=== PATIENT | male | born 1990 | race Caucasian/White ===

== ENCOUNTER 2025-03-25 10:56 | Emergency (ER) | payer MEDICARE, SELFPAY ==
[2025-03-25 11:01] VITALS: BP 197/131
[2025-03-25 11:37] VITALS: BP 162/96
--- NOTE | 2025-03-25 11:50 | ED.GENMED ---
History of Present Illness
General
Chief Complaint: Ear Problem
Time Seen by Provider: 03/25/25 11:28
History of Present Illness
History of Present Illness:
35-year-old male presents to the emergency department for evaluation of persistent left ear pain with progressive hearing loss over the past several days. At the urgent care 3 days ago diagnosed with left otitis media and started on Augmentin.
States symptoms
He has now developed mild hearing loss. Denies fevers, chills, sweats, URI symptoms, nausea, or vomiting. Has had multiple episodes of otitis media in the past month
Review of Systems
Review of Systems
Allergies reviewed?: Yes
All Other Systems: ROS reviewed and negative except as documented in HPI and ROS
Phy Exam
Physical Exam
Physical Exam:
GEN: Well appearing, NAD, WDWN
HEENT: Oral mucosa moist, no scleral icterus. Left tympanic membrane with purulent exudates surrounding the TM, no evidence of perforation, questionable early formation, the most EAC is markedly erythematous with exudates. There is posterior
auricular adenopathy on the left with no mastoid tenderness anterior chain adenopathy. No trismus.
Cardiac: Regular rate
Lung: No respiratory distress, no tachypnea
MSK: No gross deformity or injuries
Skin: Good color, no pallor or jaundice, no rashes
Neuro: AO x3, moves all extremities freely
Psych: Calm, cooperative
Course
Vital Signs
Initial and Last Documented VS:
Initial Vital Signs
Temp Pulse Resp BP Pulse Ox
98.1 F 73 14 197/131 100
03/25/25 11:01 03/25/25 11:01 03/25/25 11:01 03/25/25 11:01 03/25/25 11:01
Last Documented Vital Signs
Temp Pulse Resp BP Pulse Ox
98.1 F 73 14 162/96 100
03/25/25 11:01 03/25/25 11:01 03/25/25 11:01 03/25/25 11:37 03/25/25 11:50
MDM/Problems Addressed
MDM/Problems Addressed:
Appearance suspicious for arthritis externa, will add topical and recommend outpatient ENT follow-up due to recurrence of infections over the past month
*Pulse Oximetry
SaO2: 100
Oxygen Mode of Delivery: Room air
Patient hypoxic: no
*Critical Care Note
Total Time (30-74mins, 75-104mins- exclusive of procedures): Not Applicable
ED Attending Note
-
Portions of this chart may have been created with voice recognition software.� Occasional wrong word or��sound alike� substitutions may have occurred due to the inherent limitations of voice recognition software.
Discharge Plan
Departure
Patient Disposition: Home (Routine Discharge)
Date of Disposition: 03/25/25
Time of Disposition: 11:50
Patient with high blood pressure during this ER visit?: No
Discharge Problem:
Acute bacterial otitis externa, Otitis media
Instructions: Outer Ear Infection (DC)
Prescriptions:
New
ciprofloxacin-dexamethasone 0.3-0.1 % drops,suspension
4 drp otic (ear) BID 7 Days Qty: 7.5 0RF
Referrals:
Jong Anthony MD [Active, Otology] - Call in 1-3 days for appt
NONE,* [Family Provider, Internal Medicine]
Activity Restrictions/Additional Instructions:
Continue antibiotics
Follow up with ENT as soon as possible for re-evaluation of your frequent ear infections
Interventions
Interventions:
*Risk Screen - Suicide Last Done: 03/25/25 11:01
*General Assessment Last Done: 03/25/25 11:01
*Neglect/Abuse Screening Last Done: 03/25/25 11:01
*ED- Fall Risk Assessment Last Done: 03/25/25 11:37
*ED COVID-19 Vaccine History Last Done: 03/25/25 11:01
*ED Influenza Vaccine History Last Done: 03/25/25 11:01
*Nursing Disposition Last Done: 03/25/25 12:05
Discharge Date and Time
Discharge Date/Time: 03/25/25 12:09
Print Language: [id number]
== END 2025-03-25 12:09 | disposition home or self-care (01) ==
LOC: EMR 10:56
PROVIDERS: EMERGENCY PHYSICIAN Emergency Medicine
DX: H60.392 Other infective otitis externa, left ear (principal); H66.92 Otitis media, unspecified, left ear
CPT/HCPCS: 99282